=== PATIENT | female | born 1980 | race Caucasian/White ===

== ENCOUNTER 2017-02-20 12:18 | Emergency (ER) | payer MEDICAID, OTHER ==
[~2017-02-20] VITALS: Ht 165.1 cm; Wt 104.0 kg
[~2017-02-20 12:18] MED LIST: NAPR550 PO; OXYC-360 PO; PREN0.01 PO; SENN1TAB11 PO
[2017-02-20 12:21] VITALS: BP 136/95; PULSE 80; RESP 16; TEMP 97.8; O2SAT 99
--- NOTE | 2017-02-20 12:46 | PD ---
HPI Chief Complaint: Headache Time Seen by Provider: 12:32 Travel History International Travel<30 days: No Contact w/Intl Traveler<30days: No Traveled to known affect area: No History of Present Illness HPI This is a 36-year-old female who presents to the emergency department having had onset of a headache when she woke up this morning described as all over her head, mild, throbbing, associated with some nausea but no vomiting. 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 She says that lasted for about 20 minutes and then subsided. She had no difficulty walking or talking and no weakness or numbness. This is never happened to her before. She says she's had headaches in the past but she's never had migraines that she knows of. PFSH Past Medical History Hx Anticoagulant Therapy: No Diabetes: No Diminished Hearing: No Tetanus Vaccination: Unknown ?: Unknown Social History Alcohol Use: No Tobacco Use: No Substance Use: No Allergies-Medications (Allergen,Severity, Reaction): Coded Allergies: No Known Allergies (Verified , 02/20/17) Reported Meds & Prescriptions Reported Meds & Active Scripts Active No Active Prescriptions or Reported Medications Review of Systems Except as stated in HPI: all other systems reviewed are Neg Physical Exam Narrative GENERAL:Well appearing, no acute distress SKIN: Warm and dry. HEAD: Atraumatic. Normocephalic. EYES: Pupils equal and round. No injection or drainage. ENT: Moist mucous membranes NECK: Trachea midline. CARDIOVASCULAR: Regular rate and rhythm. No murmur appreciated. RESPIRATORY: Clear to auscultation. Breath sounds equal bilaterally. GASTROINTESTINAL: Abdomen soft, non-tender, nondistended. MUSCULOSKELETAL: No obvious deformities. NEUROLOGICAL: Awake and alert. No obvious cranial nerve deficits. No dysarthria or aphasia. No upper or lower extremity drift. No upper extremity ataxia. Visual townsend intact. Normal gait. PSYCHIATRIC: Appropriate mood and affect; insight and judgment normal. Data Data Last Documented VS Vital Signs Date Time Temp Pulse Resp B/P Pulse Ox O2 Delivery O2 Flow Rate FiO2 02/20/17 12:21 97.8 80 16 136/[address] Brain W/O Iv Contrast(Rout) (02/20/17 ) [facility] Medical Decision Making Medical Screen Exam Complete: Yes Emergency Medical Condition: Yes Interpretation(s) Afebrile, no tachycardia, mild hypertension Last [address] 02/20/17 0000 Signed Impressions: Service Date/Time: Monday, February 20, 2017 13:00 - CONCLUSION: 1. No evidence of acute intracranial pathology. No masses are identified. Dru Turner MD Differential Diagnosis Ocular migraine, retinal migraine, mass, multiple sclerosis, intracranial hemorrhage Narrative Course 36 year old female who presents to the emergency department with a headache that started when she woke up this morning associated with a red color in her vision out of 1 eye that lasted for 20 minutes and then subsided. She has a normal neurologic exam. CT of the head was unremarkable. I suspect she had a migraine. I spoke to superintendent gas distribution for neurology who agrees to follow up with the patient in clinic. She also recommended that I have the patient see ophthalmology as an outpatient. I think patient is safe for discharge. Diagnosis Primary Impression: Migraine Qualified Code: G43.B0 - Ophthalmoplegic migraine, not intractable Referrals: Nena Marrufo MD, Nishita MD Patient Instructions: General Instructions Additional Instructions: If you develop severe worsening headache, persistent vomiting, numbness, weakness, difficulty walking or difficulty talking return to the emergency department immediately. Sometimes in the emergency department we did not identify the cause of headaches. If you continued to have headaches it is very important that he followup with her primary care physician as you may need further testing with an MRI. Med/Other Pt SpecificInfo: Prescription(s) given Scripts Naproxen 500 Mg Umh429 Mg PO BID PRN (HEADACHE) #15 TAB Ref 0 Prov:Geovanna Serrano MD 02/20/17 Disposition: 01 DISCHARGE HOME Condition: Stable Geovanna Serrano MD Feb 20, 2017 12:46
--- NOTE | 2017-02-20 13:42 | RADHPO ---
EXAM DATE/TIME: 02/20/2017 13:00 [facility] COMPARISON: No previous studies available for comparison. INDICATIONS : Headache. Nausea. Temporary loss of vision in left eye. RADIATION DOSE: 63.28 CTDIvol (mGy) MEDICAL HISTORY : None SURGICAL HISTORY : None. ENCOUNTER: Initial ACUITY: 1 day PAIN SCALE: 8/10 LOCATION: cranial TECHNIQUE: Multiple contiguous axial images were obtained of the head. Using automated exposure control and adj ustment of the mA and/or kV according to patient size, radiation dose was kept as low as reasonably a chievable to obtain optimal diagnostic quality images. FINDINGS: CEREBRUM: The ventricles are normal for age. No evidence of midline shift, mass lesion, hemorrhage or acute in farction. No extra-axial fluid collections are seen. POSTERIOR FOSSA: The cerebellum and brainstem are intact. The 4th ventricle is midline. The cerebellopontine angle i s unremarkable. EXTRACRANIAL: The visualized portion of the orbits is intact. SKULL: The calvaria is intact. No evidence of skull fracture. CONCLUSION: 1. No evidence of acute intracranial pathology. No masses are identified. Dru Turner MD on February 20, 2017 at 13:39 Board Certified Radiologist. This report was verified electronically.
[2017-02-20] MEDS ORDERED: NAPR500T PO (14:03)
[2017-02-20 14:25] VITALS: BP 134/88
== END 2017-02-20 14:29 | disposition home or self-care (01) ==
LOC: PHED 12:18
DX: G43.B0 Ophthalmoplegic migraine, not intractable (principal)
CPT/HCPCS: 70450